=== PATIENT | male | born 1940 | race Caucasian/White ===

== ENCOUNTER 2020-02-10 07:17 | Inpatient (IN) ==
[2020-02-04 11:18] LABS: Basophils % 0.6 % (0.0-0.8); Eosinophils # 0.1 10*3/uL (0.0-0.87); Eosinophils % 2.3 % (0.00-10.9); Hematocrit 48.5 VOL% (42.0-52.0); Hemoglobin 16.2 GM/DL (14.0-18.0); Immature Granulocytes % 0.4 %; Immature Granulocytes Absolute 0.02 #; Lymphocytes # 1.6 10*3/uL (1.4-4.0); Lymphocytes % 29.6 % (21.2-54.2); Mean Corpuscular HGB Conc 33.4 GM/DL (32-36); Mean Corpuscular Volume 94.4 FL (87-102); Mean Platelet Volume 9.6 FL (9.6-12.0); Neutrophils % 58.1 % (38.7-73.9); Platelet Count 182 T/CUMM (130-400); Red Blood Count 5.14 MC/CUMM (3.8-5.5); Red Cell Distribution Width 13.4 % (9.3-17.3); White Blood Count 5.2 T/CUMM (4-12)
[2020-02-04 11:42] LABS: Albumin 3.8 G/DL (3.4-5.0); Bilirubin,Total 1.4 MG/DL (0.2-1.0); Calcium 8.9 MG/DL (8.5-10.1); Osmolality,Calculated 280.4 MOS/KG (273-304); Total Protein 7.7 G/DL (6.4-8.3)
[~2020-02-10 07:17] MED LIST: ALVIMOPAN 12 MG CAPSULE PO ONE; INDOCYANINE GREEN 25 MG VIAL IV ONE
[2020-02-10] MEDS ORDERED: DIAZEPAM 5 MG TABLET PO ONE (07:42)
[2020-02-10] MEDS ORDERED: GABAPENTIN 400 MG CAPSULE PO ONE (07:42)
[2020-02-10] MEDS ORDERED: ACETAMINOPHEN 500 MG TABLET PO ONE (07:42)
[2020-02-10] MEDS ORDERED: FAMOTIDINE 20 MG TABLET PO ONE (07:42)
[2020-02-10] MEDS ORDERED: LACTATED RINGERS 1,000 ML IV SCH (08:00)
[2020-02-10] MEDS ORDERED: DIAZEPAM 5 MG TABLET ONE (08:13)
[2020-02-10] MEDS ORDERED: GABAPENTIN 400 MG CAPSULE ONE (08:13)
[2020-02-10] MEDS ORDERED: ALVIMOPAN 12 MG CAPSULE ONE (08:14)
[2020-02-10] MEDS ORDERED: FAMOTIDINE 20 MG TABLET ONE (08:14)
[2020-02-10] MEDS ORDERED: ACETAMINOPHEN 500 MG TABLET ONE (08:14)
[2020-02-10] MEDS ORDERED: ERTAPENEM 1,000 MG VIAL ONE (08:43)
[2020-02-10] MEDS ORDERED: BUPIVACAINE MPF 0.25% 30 ML VIAL ONE (09:52)
[2020-02-10] MEDS ORDERED: EPINEPHrine 1 MG/ML VIAL ONE (09:53)
[2020-02-10] MEDS ORDERED: DEXAMETHASONE 4 MG/1 ML VIAL ONE (09:53)
[2020-02-10] MEDS ORDERED: INDOCYANINE GREEN 25 MG VIAL IV ONE (10:03)
[2020-02-10] MEDS ORDERED: TISSUE ADHESIVE 1 EACH APPLICATOR TOP ONE ×2 (10:04→13:35)
[2020-02-10] MEDS ORDERED: ALBUMIN 5% 12.5 GM/250 ML VIAL IV ONE (11:28)
[2020-02-10] MEDS ORDERED: SUGAMMADEX 200 MG/2 ML VIAL IV ONE (13:13)
[2020-02-10] MEDS ORDERED: MIDAZOLAM 2 MG/2 ML VIAL ONE (14:04)
[2020-02-10] MEDS ORDERED: ePHEDrine 50 MG/ML VIAL ONE (14:04)
[2020-02-10] MEDS ORDERED: fentaNYL 100 MCG/2 ML VIAL ONE (14:04)
[2020-02-10] MEDS ORDERED: SEVOFLURANE 1 UNIT/15 MINUTE INH ONE (14:04)
[2020-02-10] MEDS ORDERED: propofoL 200 MG/20 ML VIAL IV ONE (14:04)
[2020-02-10] MEDS ORDERED: ONDANSETRON 4 MG/2 ML VIAL ONE ×2 (14:04→14:21)
[2020-02-10] MEDS ORDERED: ETOMIDATE 40 MG/20 ML VIAL IV ONE (14:05)
[2020-02-10] MEDS ORDERED: ROCURONIUM 100 MG/10 ML VIAL IV ONE (14:05)
[2020-02-10] MEDS ORDERED: GLYCOPYRROLATE 0.4 MG/2 ML VIAL ONE (14:05)
[2020-02-10] MEDS ORDERED: SODIUM CHLORIDE 0.9% 1,000 ML IV ONE (14:05)
[2020-02-10] MEDS ORDERED: HYDROmorphone 2 MG/1 ML VIAL ONE (14:21)
[2020-02-10] MEDS ORDERED: ONDANSETRON 4 MG/2 ML VIAL IV PRN ×2 (14:21→15:07)
[2020-02-10] MEDS: HYDROmorphone 2 MG/1 ML VIAL IV PRN ×2 (14:21→14:26)
[2020-02-10] MEDS ORDERED: HYDROmorphone 2 MG/1 ML VIAL IV PRN (15:07)
[2020-02-10 15:54] LABS: Basophils % 0.3 % (0.0-0.8); Eosinophils % 0.3 % (0.00-10.9); Hematocrit 49.1 VOL% (42.0-52.0); Hemoglobin 15.9 GM/DL (14.0-18.0); Immature Granulocytes % 0.4 %; Immature Granulocytes Absolute 0.04 #; Lymphocytes # 0.7 10*3/uL (1.4-4.0); Lymphocytes % 7.7 % (21.2-54.2); Mean Corpuscular HGB Conc 32.4 GM/DL (32-36); Mean Corpuscular Volume 96.7 FL (87-102); Mean Platelet Volume 9.4 FL (9.6-12.0); Monocytes % 1.9 % (1.7-12.7); Neutrophils % 89.4 % (38.7-73.9); Platelet Count 151 T/CUMM (130-400); Red Blood Count 5.08 MC/CUMM (3.8-5.5); Red Cell Distribution Width 13.5 % (9.3-17.3); White Blood Count 9.4 T/CUMM (4-12)
[2020-02-10 16:22] LABS: Osmolality,Calculated 286.1 MOS/KG (273-304)
[2020-02-10] MEDS: KETOROLAC 30 MG/1 ML VIAL IV SCH ×2 (17:56→22:10)
[2020-02-10] MEDS: LACTATED RINGERS 1,000 ML IV SCH (17:56)
[2020-02-10] MEDS ORDERED: TAMSULOSIN 0.4 MG CAPSULE PO ONE (20:00)
[2020-02-10] MEDS: DOCUSATE SODIUM 100 MG CAPSULE PO SCH (22:09)
[2020-02-10] MEDS: METOPROLOL TARTRATE 50 MG TABLET PO SCH (22:10)
[2020-02-10] MEDS: ALVIMOPAN 12 MG CAPSULE PO SCH (22:10)
[2020-02-11] MEDS: LACTATED RINGERS 1,000 ML IV SCH (03:36)
[2020-02-11] MEDS: KETOROLAC 30 MG/1 ML VIAL IV SCH ×3 (03:40→14:38)
[2020-02-11 05:59] LABS: Basophils % 0.1 % (0.0-0.8); Hematocrit 44.2 VOL% (42.0-52.0); Hemoglobin 14.9 GM/DL (14.0-18.0); Immature Granulocytes % 0.8 %; Immature Granulocytes Absolute 0.11 #; Lymphocytes # 0.9 10*3/uL (1.4-4.0); Lymphocytes % 6.2 % (21.2-54.2); Mean Corpuscular HGB Conc 33.7 GM/DL (32-36); Mean Corpuscular Volume 95.1 FL (87-102); Mean Platelet Volume 9.8 FL (9.6-12.0); Monocytes % 5.1 % (1.7-12.7); Neutrophils % 87.8 % (38.7-73.9); Platelet Count 148 T/CUMM (130-400); Red Blood Count 4.65 MC/CUMM (3.8-5.5); Red Cell Distribution Width 13.5 % (9.3-17.3); White Blood Count 14.2 T/CUMM (4-12)
[2020-02-11 06:29] LABS: Calcium 8.3 MG/DL (8.5-10.1); Osmolality,Calculated 276.7 MOS/KG (273-304)
[2020-02-11] MEDS ORDERED: ENOXAPARIN 40 MG/0.4 ML SYRINGE SUBCUT SCH (07:45)
[2020-02-11] MEDS: DOCUSATE SODIUM 100 MG CAPSULE PO SCH (08:37)
[2020-02-11] MEDS: ALVIMOPAN 12 MG CAPSULE PO SCH (08:37)
[2020-02-11] MEDS: METOPROLOL TARTRATE 50 MG TABLET PO SCH (08:37)
[2020-02-11] MEDS ORDERED: TAMSULOSIN 0.4 MG CAPSULE PO SCH (09:00)
[2020-02-11] MEDS ORDERED: MULTIVITAMIN (CENTRUM) TABLET PO SCH (09:00)
[2020-02-11] MEDS ORDERED: amLODIPine 10 MG TABLET PO SCH (09:00)
[2020-02-11 12:19] VITALS: BP 109/48
== END 2020-02-11 15:30 | disposition home or self-care (01) | DRG 330 ==
LOC: N.OR 07:17 → N.SDSINP 07:17 → N.4E 14:59
PROVIDERS: ADMIT Surgery; ATTEND Surgery

== ENCOUNTER 2021-08-29 08:52 | Inpatient (IN) ==
[2021-08-29] MEDS ORDERED: SODIUM CHLORIDE 0.9% 1,000 ML IV STA (10:06)
[2021-08-29 10:24] LABS: Basophils % 0.2 % (0.0-0.8); Eosinophils % 0.2 % (0.00-10.9); Hematocrit 38.9 VOL% (42.0-52.0); Hemoglobin 11.9 GM/DL (14.0-18.0); Immature Granulocytes % 1.4 %; Immature Granulocytes Absolute 0.26 #; Lymphocytes # 1.1 10*3/uL (1.4-4.0); Lymphocytes % 5.8 % (21.2-54.2); Mean Corpuscular HGB Conc 30.6 GM/DL (32-36); Mean Corpuscular Volume 84.6 FL (87-102); Mean Platelet Volume 10.2 FL (9.6-12.0); Monocytes % 4.8 % (1.7-12.7); Neutrophils % 87.6 % (38.7-73.9); Platelet Count 185 T/CUMM (130-400); Red Cell Distribution Width 14.2 % (9.3-17.3); White Blood Count 19.1 T/CUMM (4-12)
[2021-08-29 10:42] LABS: Albumin 2.4 G/DL (3.4-5.0); Bilirubin,Total 0.7 MG/DL (0.20-1.00); Calcium 11.8 MG/DL (8.5-10.1); Osmolality,Calculated 284.5 MOS/KG (273-304); Potassium 3.2 MMOL/L (3.5-5.1); Total Protein 7.9 G/DL (6.4-8.2)
[2021-08-29 11:04] LABS: Hyaline Casts,Urine 11 /LPF (0-3); Mucus,Urine Occasional /LPF (Occasional); RBC,Urine 3 /HPF (0-4)
[2021-08-29] MEDS ORDERED: cefTRIAXone 1,000 MG in SODIUM CHLORIDE 0.9% 100 ML IV STA (11:04)
[2021-08-29 11:09] LABS: Bilirubin,Urine Negative (Negative); Blood, Urine Negative (Negative); Glucose,Urine (UA) Negative (Negative); Ketones,Urine Negative (Negative); Nitrite,Urine Negative (Negative); Protein,Urine 1+ MG/DL; Urine Appearance Clear (Clear); Urine Color Yellow (Yellow); Urine Urobilinogen 0.2 EU/DL (<2.0)
[2021-08-29] MEDS ORDERED: ALBUTEROL/IPRATROPIUM 3 ML NEB RESP TX PRN (12:49)
[2021-08-29] MEDS ORDERED: GLUCAGON 1 MG VIAL IM PRN (12:49)
[2021-08-29] MEDS ORDERED: ONDANSETRON 4 MG/2 ML VIAL IV PRN (12:49)
[2021-08-29] MEDS ORDERED: DEXTROSE 10% 25 GM/250 ML BAG IV PRN (12:49)
[2021-08-29] MEDS ORDERED: hydrALAZINE 20 MG/1 ML VIAL IV PRN (12:49)
[2021-08-29] MEDS ORDERED: AZITHROMYCIN INJ 500 MG in SODIUM CHLORIDE 0.9% 250 ML IV ONE (12:54)
[2021-08-29] MEDS ORDERED: ENOXAPARIN 40 MG/0.4 ML SYRINGE SUBCUT SCH (13:00)
[2021-08-29] MEDS: LACTATED RINGERS 1,000 ML IV SCH (13:44)
[2021-08-29] MEDS ORDERED: traZODone 50 MG TABLET PO ONE (15:08)
[2021-08-29] MEDS: ENOXAPARIN 40 MG/0.4 ML SYRINGE SUBCUT SCH (15:17)
[2021-08-30 05:04] LABS: Basophils # 0.1 10*3/uL (0.0-0.2); Basophils % 0.3 % (0.0-0.8); Eosinophils # 0.1 10*3/uL (0.0-0.87); Eosinophils % 0.7 % (0.00-10.9); Hematocrit 37.4 VOL% (42.0-52.0); Hemoglobin 11.4 GM/DL (14.0-18.0); Immature Granulocytes % 0.7 %; Immature Granulocytes Absolute 0.11 #; Lymphocytes # 1.5 10*3/uL (1.4-4.0); Lymphocytes % 8.7 % (21.2-54.2); Mean Corpuscular HGB Conc 30.5 GM/DL (32-36); Mean Corpuscular Volume 85.6 FL (87-102); Mean Platelet Volume 10.3 FL (9.6-12.0); Monocytes % 5.9 % (1.7-12.7); Neutrophils % 83.7 % (38.7-73.9); Platelet Count 183 T/CUMM (130-400); Red Blood Count 4.37 MC/CUMM (3.8-5.5); Red Cell Distribution Width 14.1 % (9.3-17.3); White Blood Count 16.8 T/CUMM (4-12)
[2021-08-30] MEDS: LACTATED RINGERS 1,000 ML IV SCH ×2 (05:11→12:08)
[2021-08-30 05:54] LABS: Osmolality,Calculated 289.8 MOS/KG (273-304); Potassium 3.2 MMOL/L (3.5-5.1)
[2021-08-30] MEDS: cefTRIAXone 1,000 MG in SODIUM CHLORIDE 0.9% 100 ML IV SCH (12:08)
[2021-08-30] MEDS ORDERED: POTASSIUM CHLORIDE 20 MEQ TABLET PO PRN (13:01)
[2021-08-30 13:53] LABS: INR 1.2; PT Patient Result 13.6 SECS (10.5-12.0)
[2021-08-30] MEDS: ENOXAPARIN 40 MG/0.4 ML SYRINGE SUBCUT SCH (16:12)
[2021-08-30] MEDS: AZITHROMYCIN INJ 250 MG in SODIUM CHLORIDE 0.9% 250 ML IV SCH (16:36)
[2021-08-31] MEDS: LACTATED RINGERS 1,000 ML IV SCH ×3 (05:34→16:50)
[2021-08-31 05:50] LABS: Calcium 10.7 MG/DL (8.5-10.1); Osmolality,Calculated 290.8 MOS/KG (273-304); Potassium 2.7 MMOL/L (3.5-5.1)
[2021-08-31 06:07] LABS: Basophils # 0.1 10*3/uL (0.0-0.2); Basophils % 0.3 % (0.0-0.8); Eosinophils # 0.1 10*3/uL (0.0-0.87); Eosinophils % 0.5 % (0.00-10.9); Hematocrit 37.3 VOL% (42.0-52.0); Hemoglobin 11.7 GM/DL (14.0-18.0); Immature Granulocytes % 0.8 %; Immature Granulocytes Absolute 0.16 #; Lymphocytes # 1.4 10*3/uL (1.4-4.0); Lymphocytes % 7.3 % (21.2-54.2); Mean Corpuscular HGB Conc 31.4 GM/DL (32-36); Mean Platelet Volume 10.5 FL (9.6-12.0); Monocytes % 5.6 % (1.7-12.7); Neutrophils % 85.5 % (38.7-73.9); Platelet Count 128 T/CUMM (130-400); Red Blood Count 4.44 MC/CUMM (3.8-5.5); Red Cell Distribution Width 14.1 % (9.3-17.3); White Blood Count 19.2 T/CUMM (4-12)
[2021-08-31] MEDS: POTASSIUM CHLORIDE RIDER 10 MEQ/100 ML PREMIX IV PRN ×5 (06:11→22:39)
[2021-08-31] MEDS ORDERED: DIAZEPAM 5 MG TABLET PO ONE (11:08)
[2021-08-31] MEDS ORDERED: SODIUM CHLORIDE 0.45% 1,000 ML IV SCH (11:30)
[2021-08-31] MEDS ORDERED: ACETAMINOPHEN 325 MG/10.15 ML UDCUP PO PRN (13:05)
[2021-08-31] MEDS ORDERED: HYDROcod/ACETAMIN 7.5-325 MG/15 ML UDCUP PO PRN (13:06)
[2021-08-31] MEDS ORDERED: MORPHINE 4 MG/1 ML VIAL IV PRN (14:58)
[2021-08-31] MEDS ORDERED: METOPROLOL TARTRATE 5 MG/5 ML VIAL IV SCH (15:01)
[2021-08-31] MEDS: cefTRIAXone 1,000 MG in SODIUM CHLORIDE 0.9% 100 ML IV SCH (16:22)
[2021-08-31] MEDS: ENOXAPARIN 40 MG/0.4 ML SYRINGE SUBCUT SCH (16:22)
[2021-08-31] MEDS: AZITHROMYCIN INJ 250 MG in SODIUM CHLORIDE 0.9% 250 ML IV SCH (17:18)
[2021-08-31] MEDS: METOPROLOL TARTRATE 5 MG/5 ML VIAL IV SCH (20:53)
[2021-09-01] MEDS: POTASSIUM CHLORIDE RIDER 10 MEQ/100 ML PREMIX IV PRN ×3 (00:29→04:40)
[2021-09-01] MEDS: METOPROLOL TARTRATE 5 MG/5 ML VIAL IV SCH ×5 (00:33→12:42)
[2021-09-01] MEDS: LACTATED RINGERS 1,000 ML IV SCH (02:41)
[2021-09-01 05:41] LABS: Basophils % 0.2 % (0.0-0.8); Eosinophils # 0.1 10*3/uL (0.0-0.87); Eosinophils % 0.2 % (0.00-10.9); Hemoglobin 11.5 GM/DL (14.0-18.0); Immature Granulocytes % 0.9 %; Immature Granulocytes Absolute 0.21 #; Lymphocytes # 1.5 10*3/uL (1.4-4.0); Lymphocytes % 6.9 % (21.2-54.2); Mean Corpuscular HGB Conc 30.3 GM/DL (32-36); Mean Corpuscular Volume 85.4 FL (87-102); Mean Platelet Volume 11.8 FL (9.6-12.0); Monocytes % 5.5 % (1.7-12.7); Neutrophils % 86.3 % (38.7-73.9); Platelet Count 78 T/CUMM (130-400); Red Blood Count 4.45 MC/CUMM (3.8-5.5); Red Cell Distribution Width 14.7 % (9.3-17.3); White Blood Count 22.2 T/CUMM (4-12)
[2021-09-01 06:00] LABS: Calcium 11.1 MG/DL (8.5-10.1); Osmolality,Calculated 299.4 MOS/KG (273-304); Potassium 3.6 MMOL/L (3.5-5.1)
[2021-09-01 06:08] LABS: Anisocytosis 1+; Band Neutrophils 4 % (0-10); Lymphocytes 3 % (20-55); Nucleated Red Blood Cells 2 (0-5); Platelet Estimate Decreased; Segmented Neutrophils 89 % (50-85); Total Cells Counted 100
[2021-09-01 06:09] LABS: Macrocytosis Slight
[2021-09-01] MEDS ORDERED: MENTHOL/ZINC OXIDE OINT 71 GM JAR TOP SCH ×2 (11:00→21:00)
[2021-09-01] MEDS: cefTRIAXone 1,000 MG in SODIUM CHLORIDE 0.9% 100 ML IV SCH (12:25)
[2021-09-01] MEDS: ENOXAPARIN 40 MG/0.4 ML SYRINGE SUBCUT SCH (13:05)
[2021-09-01 13:59] VITALS: BP 102/48
[2021-09-01] MEDS ORDERED: DEXTROSE 5% 1,000 ML IV SCH (14:30)
== END 2021-09-01 15:47 | disposition expired | DRG 166 ==
LOC: N.EDINP 08:52 → N.ED 08:52 → N.EDINP 16:28 → N.TELES 17:11 → SUATTDRO 08-30 12:56
PROVIDERS: ADMIT Internal Medicine; ATTEND Internal Medicine Geriatric Medicine